=== PATIENT | female | born 1990 | race Caucasian/White ===

== ENCOUNTER 2023-05-08 19:23 | Inpatient (IN) | payer OTHER ==
[~2023-05-08] VITALS: Ht 175.3 cm; Wt 140.2 kg
[2023-05-08 20:04] VITALS: BP 124/74; TEMP 98.5; O2SAT 99
[2023-05-08] MEDS: VANCOMYCIN 1 GM in IV D5W 250 ML IV SCH (21:00)
[2023-05-08] MEDS ORDERED: DOXY-326 PO (21:50)
[2023-05-09] MEDS: PIPERACILLIN /TAZOBACTAM 3.375 G in IV D5W 50 ML IV SCH
== END 2023-05-08 22:00 | disposition left against medical advice (07) | DRG 383 ==
LOC: ER 19:25 → MED 21:03
DX: L03.115 Cellulitis of right lower limb (principal); L97.819 Non-pressure chronic ulcer of other part of right lower leg with unspecified severity; L73.9 Follicular disorder, unspecified; L97.919 Non-pressure chronic ulcer of unspecified part of right lower leg with unspecified severity; Z79.890 Hormone replacement therapy; Z98.890 Other specified postprocedural states; Z91.018 Allergy to other foods; Z88.0 Allergy status to penicillin; R60.0 Localized edema; L97.929 Non-pressure chronic ulcer of unspecified part of left lower leg with unspecified severity; I87.2 Venous insufficiency (chronic) (peripheral); L97.829 Non-pressure chronic ulcer of other part of left lower leg with unspecified severity
CPT/HCPCS: 93970-TC; G0378; J2543; J3370; J7060